=== PATIENT | female | born 1995 | race Caucasian/White ===

== ENCOUNTER 2023-11-10 14:57 | Emergency (ER) | payer BC, SELFPAY ==
[2023-11-10 15:04] VITALS: BP 116/81
--- NOTE | 2023-11-10 15:10 | ED.PDOC.TRB ---
ED Provider Triage
-
Patient seen by provider in Triage?: Seen in Triage
A medical screening examination has been initiated by a qualified medical provider. Based on the assessment performed at this time, it has been determined that an emergent medical condition may exist and the patient has been informed that further
medical evaluation and possible additional diagnostic testing may be needed.
HPI: This is a medical evaluation conducted in person to initiate diagnostic evaluation and provide initial therapeutics. Please see further documentation by the treating clinician.
GENERAL: Alert ,tearful
EYE: No visual abnormalities.
NECK: Trachea midline
ENT: No visible abnormalities.
LUNGS: No acute respiratory distress
NEUROLOGICAL: Alert and oriented
SKIN: no visible lesions.
MUSCULOSKELETAL: Moving extremities normally
PSYCH: Normal and appropriate interaction.
28-year-old female without significant past medical history presenting to the emergency department after syncopal episode lower at [employer]. She felt very lightheaded started to fall she was caught before hitting the ground. Was after a brief moment
otherwise feels well at this point no chest pain or shortness of breath. No recent trauma surgery mobilization explained normal vital signs upon arrival not tachycardic. Plan for labs and EKG for further assessment.
[2023-11-10 15:26] LABS: % Basophils 0.9 % (0-2); % Eosinophils 0.4 % (0-6); % Immature Granulocytes 1.2 % (0-0.5); % Monocytes 8.6 % (1.7-9.3); % Neutrophils 52.9 % (42.2-75.2); Absolute Basophils 0.1 10^3/uL (0-0.2); Absolute Immature Granulocytes 0.1 10^3/uL (0-0.05); Absolute Lymphocytes 2.9 10^3/uL (1.2-3.4); Absolute Monocytes 0.7 10^3/uL (0.1-0.6); Absolute Neutrophils 4.3 10^3/uL (1.4-6.5); Hematocrit 38.6 % (37.0-47.0); Hemoglobin 13.7 g/dL (12.0-16.0); Mean Corp Hgb Conc. 35.5 g/dL (33.0-37.0); Mean Corpuscular Hgb 29.9 pg (27.0-31.0); Mean Corpuscular Volume 84.3 fL (81.0-99.0); Mean Platelet Volume 9.6 fL (7.4-10.4); Nucleated Red Blood Cells % 0 %; Platelet Count 249 10^3/uL (130-400); Red Blood Cell Count 4.58 10^6/uL (4.20-5.40); Red Cell Dist. Width 11.8 % (11.5-14.5); White Blood Cell Count 8.1 10^3/uL (4.8-10.8)
[2023-11-10 15:39] LABS: HCG, Serum Qualitative Screen Negative
[2023-11-10 15:42] LABS: ALT (SGPT) 20 U/L (0-35); AST (SGOT) 33 U/L (14-36); Albumin 4.9 g/dl (3.5-5.0); Alkaline Phosphatase 80 U/L (38-126); Blood Urea Nitrogen 14 mg/dl (7-17); Calcium 9.8 mg/dl (8.4-10.2); Carbon Dioxide 24 mmol/L (22-30); Chloride 103 mmol/L (98-107); Glucose 100 mg/dl (70-99); Potassium 4.4 mmol/L (3.5-5.1); Sodium 139 mmol/L (135-145); Total Bilirubin 0.3 mg/dl (0.2-1.3); Total Protein 7.3 g/dl (6.3-8.2); eGFR > 60.00
--- NOTE | 2023-11-10 16:43 | ED.GENMED ---
History of Present Illness
General
Chief Complaint: Fainting/Passed Out
Source: patient
Time Seen by Provider: 11/10/23 16:25
History of Present Illness
History of Present Illness:
28yoF with no significant past medical history presenting with her father for evaluation after syncopal episode around 9 AM this morning. Patient was at work today and she was standing speaking with her boss. Her vision started to go black, she
felt flushed, and started to feel lightheaded. Patient turned around to sit down when she had a witnessed syncopal episode. Her boss was able to catch her so she did not fall. Patient is unsure how long she was truly unconscious for but believes
it was about a few minutes. Her boss told her that she was shaking during the episode and was unsure if she had a seizure. Patient denies any bowel/bladder incontinence, tongue biting, or postictal period. She was seen by EMS at the scene. Vitals
and fingerstick glucose were normal and she declined transport to the ED at that time. She is currently asymptomatic other than a mild headache. Her father believes that she does not eat enough. She only had a banana for breakfast prior to this
episode.
Past History
Past History
ED Past Medical History: None
ED Past Surgical History: Other (oral sx)
Social History
Tobacco: Non-smoker
Employment: Employed
Phy Exam
General Physical Exam
General Presentation: well appearing and no apparent distress
General age: appears stated age
General Skin: warm and dry
General Habitus: normal
General Mental: alert
General Hydration: appears well hydrated
Eye Exam
Eye Exam: PERRL
Cardiovascular Exam
Cardiovascular Exam: regular rate/rhythm, no edema and no murmur
Pulmonary Exam
Pulmonary Exam: lungs clear, no respiratory distress, no crackles and no wheezing
Neurological Exam
Neurological Exam: alert and no motor deficits
Tank Coma Scale
Eye Opening: Spontaneous
Verbal Response: Oriented
Motor Response: Obeys Commands
GCS Total Score: 15
Skin Exam
Skin Exam: normal color and warm/dry
Psychiatric Exam
Psychiatric Exam: normal mood/affect
Course
Orders/Labs/Results
Orders:
Orders
11/10/23 15:09
EKG [Electrocardiogram (*1)] Urgent
Reason for Study: Syncope
Test Result ONCE
11/10/23 15:10
EKG- Treatment ONCE
11/10/23 15:13
CMP [Comprehensive Metabolic Panel] Urgent
HCG, Serum Qualitative Screen Urgent
11/10/23 15:14
CBC/With Diff [Complete Blood Count/With Diff] Urgent
Abnormal Lab Results
11/10/23 11/10/23
15:13 15:14
Abs Immat Gran (auto) 0.1 H 10^3/uL
(0-0.05)
Absolute Monos (auto) 0.7 H 10^3/uL
(0.1-0.6)
Immature Gran % 1.2 H %
(0-0.5)
Glucose 100 H mg/dl
(70-99)
11/10/23 15:14
11/10/23 15:13
Vital Signs
Initial and Last Documented VS:
Initial Vital Signs
Temp Pulse Resp BP Pulse Ox
98.3 F 64 20 116/81 99
11/10/23 15:04 11/10/23 15:04 11/10/23 15:04 11/10/23 15:04 11/10/23 15:04
Last Documented Vital Signs
Temp Pulse Resp BP Pulse Ox
98.3 F 76 17 119/89 99
11/10/23 15:04 11/10/23 16:53 11/10/23 16:53 11/10/23 16:53 11/10/23 16:53
MDM/Problems Addressed
Differential Diagnosis Includes:
28yoF here after a syncopal episode at 9am this morning. Preceded by a warmth sensation and lightheadedness. Witness reported shaking during the episode. No incontinence, tongue biting, postictal period. She is relatively asymptomatic currently. She
is afebrile and hemodynamically stable. She is well appearing in no distress. Exam reassuring. Differential diagnosis includes convulsive syncope vs. less likely seizure
Labs obtained in triage. Hemoglobin and glucose normal. EKG shows sinus bradycardia without ectopy or ischemic changes. HCG is negative. Do not feel CT head is warranted at this time given overall low clinical suspicion of seizure. Patient in
agreement to defer imaging. Clinical presentation consistent with convulsive syncope. Supportive care discussed. Advised f/u with PCP. ED return precautions discussed. She expressed understanding and is agreeable to plan. Patient discharged in
stable condition.
*EKG
Interpreted by ED Provider?: Yes
EKG Intrepretation Date: 11/10/23
Heart Rate: 58
Rate: bradycardiac
Rhythm: sinus
[place]: normal axis
Interval: normal interval
QRS Pattern: normal QRS
Ischemia: no ischemia
*Critical Care Note
Total Time (30-74mins, 75-104mins- exclusive of procedures): Not Applicable
ED Attending Note
-
Portions of this chart may have been created with voice recognition software.� Occasional wrong word or��sound alike� substitutions may have occurred due to the inherent limitations of voice recognition software.
Discharge Plan
Departure
Patient Disposition: Home (Routine Discharge)
Date of Disposition: 11/10/23
Time of Disposition: 16:46
Patient with high blood pressure during this ER visit?: Yes
Discharge Problem:
Syncope
Instructions: Syncope (Fainting) (DC)
Prescriptions:
No Action
No Current Medications
0
Stand Alone Forms: Return to Work
Activity Restrictions/Additional Instructions:
Please follow-up with your family doctor. Return to the ER with any new or worsening symptoms.
Interventions
Interventions:
*Risk Screen - Suicide Last Done: 11/10/23 15:04
*General Assessment Last Done: 11/10/23 15:04
*Neglect/Abuse Screening Last Done: 11/10/23 15:04
*Nursing Disposition Last Done: 11/10/23 16:53
ED- Cardiac Assessment Last Done: 11/10/23 16:53
ED- Neurological Assessment Last Done: 11/10/23 16:53
Discharge Date and Time
Discharge Date/Time: 11/10/23 16:54
Print Language: MONGOLIAN
[2023-11-10 16:53] VITALS: BP 119/89
== END 2023-11-10 16:54 | disposition home or self-care (01) ==
LOC: EMR 14:57
PROVIDERS: Physician Assistant; EMERGENCY PHYSICIAN Emergency Medicine
DX: R55 Syncope and collapse (principal); W19.XXXA Unspecified fall, initial encounter
CPT/HCPCS: 99283; 80053; 84703; 85025; 93005